=== PATIENT | female | born 1940 | race Caucasian/White ===

== ENCOUNTER 2019-07-02 15:57 | Inpatient (IN) | payer OTHER ==
[~2019-07-02] VITALS: Ht 152.4 cm; Wt 49.0 kg
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
[2019-07-02 15:58] VITALS: BP 104/68
[2019-07-02 16:30] LABS: ABSOLUTE NEUTROPHILS 6.1 thou/uL (1.4-8.2); BASOPHILS 1.4 % (0.0-2.0); HEMATOCRIT 38.6 % (37.0-47.0); HEMOGLOBIN 12.9 gm/dL (12.0-15.0); MCH 29.9 pg (26.0-34.0); MCHC 33.4 g/dL (28.0-37.0); MCV 89.4 fL (80.0-100.0); PLATELET COUNT 250 thou/uL (150-400); POLYS 61.6 % (36.0-66.0); RBC 4.32 mil/uL (4.20-5.00); RDW 14.2 % (10.5-14.5); WBC 9.9 thou/uL (4.0-11.0)
[2019-07-02 16:37] LABS: ANION GAP 10 mmol/L (7-16); BUN 15 mg/dL (7-18); CALCIUM 9.1 mg/dL (8.5-10.1); CHLORIDE 106 mmol/L (98-107); CO2 25 mmol/L (21-32); CREATININE 0.7 mg/dL (0.6-1.0); GLUCOSE 107 mg/dL (74-106); POTASSIUM 3.6 mmol/L (3.5-5.1); SODIUM 141 mmol/L (136-145)
[2019-07-02 16:38] LABS: URINE BILIRUBIN NEGATIVE (Negative); URINE BLOOD 1+ (Negative); URINE CLARITY SL CLOUDY; URINE COLOR YELLOW; URINE GLUCOSE-RANDOM* NEGATIVE (Negative); URINE KETONES NEGATIVE (Negative); URINE LEUKOCYTES 2+ (Negative); URINE NITRITE NEGATIVE (Negative); URINE PROTEIN (DIPSTICK) NEGATIVE (Negative); URINE UROBILINOGEN 0.2 E.U./dl (0.2-1.0)
[2019-07-02 16:45] LABS: ALBUMIN 3.6 g/dL (3.4-5.0); SALICYLATE < 2.8 mg/dL (2.8-20.0); SGOT 11 U/L (15-37); SGPT 16 U/L (30-65); TOTAL BILIRUBIN 0.3 mg/dL (<0.1-1.0); TOTAL PROTEIN 7.1 g/dL (6.4-8.2)
[2019-07-02 16:46] LABS: SQUAMOUS None Seen /LPF (0-3); URINE RBC 0-2 Rare /HPF (0-2)
[2019-07-02 16:47] LABS: BACTERIA 1-9 Few /HPF (None Seen); CASTS None Seen /LPF (None Seen); CRYSTALS None Seen /LPF (None Seen); URINE WBC 0-5 Rare /HPF (0-5)
[2019-07-02 16:48] LABS: AMP/METHAMP Negative (Negative); BARBITURATES Negative (Negative); BENZODIAZEPINES Negative (Negative); COCAINE Negative (Negative); METHADONE Negative (Negative); OPIATES Negative (Negative); PCP Negative (Negative)
[2019-07-02 18:05] VITALS: BP 154/80
[2019-07-03 08:47] VITALS: BP 154/91
[2019-07-03 10:36] VITALS: BP 150/64
[2019-07-03 20:08] VITALS: BP 129/62
[2019-07-04 05:09] VITALS: BP 129/62
[2019-07-04 05:38] VITALS: BP 129/62
[2019-07-04 07:00] VITALS: BP 140/73
[2019-07-04 14:12] VITALS: BP 140/73
[2019-07-05 00:34] VITALS: BP 130/83
[2019-07-05 00:41] VITALS: BP 130/83
[2019-07-05 08:10] VITALS: BP 130/83
[2019-07-05 16:19] VITALS: BP 130/83
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
[2019-07-06 23:06] VITALS: BP 130/83
[2019-07-07 08:42] VITALS: BP 160/102
[2019-07-07] MEDS ORDERED: LIPITOR 20 MG T20 M1 PO (12:30)
[2019-07-07] MEDS ORDERED: CLARITIN10 M2 PO (12:30)
[2019-07-07] MEDS ORDERED: CARVEDILOL3.125 MG PO (12:30)
[2019-07-07] MEDS ORDERED: FELODIPINE 5 MG5 M1 PO (12:31)
[2019-07-07] MEDS ORDERED: ACETAMINOPHEN325 M1 PO (12:32)
[2019-07-07] MEDS ORDERED: MIRALAX17 GM PO (12:32)
[2019-07-07] MEDS ORDERED: HALOPERIDOL 1 MG1 MG PO (12:32)
[2019-07-07] MEDS ORDERED: ACEROLA C500 MG PO (12:33)
[2019-07-07] MEDS ORDERED: VITAMIN D2000 UNIT PO (12:33)
[2019-07-07] MEDS ORDERED: VITAMIN B-12500 MCG PO (12:33)
[2019-07-07 22:03] VITALS: BP 101/78
[2019-07-08 00:14] VITALS: BP 133/60
== END 2019-07-08 10:20 | disposition home or self-care (01) | DRG 57 ==
LOC: ER 15:57 → EROBS 17:16 → SBH 17:16
PROVIDERS: Physician Assistant; ADMIT Psychiatry & Neurology Psychiatry
DX: G30.9 Alzheimer's disease, unspecified (principal); F02.81 Dementia in other diseases classified elsewhere, unspecified severity, with behavioral disturbance; R82.71 Bacteriuria; I10 Essential (primary) hypertension; E78.5 Hyperlipidemia, unspecified; E11.51 Type 2 diabetes mellitus with diabetic peripheral angiopathy without gangrene; M81.0 Age-related osteoporosis without current pathological fracture; F32.9 Major depressive disorder, single episode, unspecified; Z79.899 Other long term (current) drug therapy
CPT/HCPCS: 10880

== ENCOUNTER 2019-07-11 22:13 | Emergency (ER) | payer OTHER ==
[~2019-07-11] VITALS: Ht 149.9 cm; Wt 63.5 kg
[~2019-07-11 22:13] MED LIST: ACEROLA C500 MG PO; ACETAMINOPHEN325 M1 PO; CARVEDILOL3.125 MG PO; CLARITIN10 M2 PO; FELODIPINE 5 MG5 M1 PO; HALOPERIDOL 1 MG1 MG PO; LIPITOR 20 MG T20 M1 PO; MIRALAX17 GM PO; VITAMIN B-12500 MCG PO; VITAMIN D2000 UNIT PO
[2019-07-11 22:16] VITALS: BP 176/82
== END 2019-07-12 03:46 | disposition home or self-care (01) ==
LOC: ER 22:13
DX: F03.90 Unspecified dementia, unspecified severity, without behavioral disturbance, psychotic disturbance, mood disturbance, and anxiety (principal); M81.0 Age-related osteoporosis without current pathological fracture; I73.9 Peripheral vascular disease, unspecified; I10 Essential (primary) hypertension; E78.5 Hyperlipidemia, unspecified